=== PATIENT | male | born 1985 | race Caucasian/White ===

== ENCOUNTER 2017-01-17 20:47 | Emergency (ER) | payer MEDICAID ==
[~2017-01-17] VITALS: Ht 172.7 cm; Wt 81.4 kg
[~2017-01-17 20:47] MED LIST: GABA300C10 PO
[2017-01-17 21:31] VITALS: BP 139/102
== END 2017-01-17 21:50 | disposition home or self-care (01) ==
LOC: ED 21:43
DX: Z02.9 Encounter for administrative examinations, unspecified (principal); I10 Essential (primary) hypertension; R56.9 Unspecified convulsions; Z88.1 Allergy status to other antibiotic agents
CPT/HCPCS: 99283

== ENCOUNTER 2017-04-09 19:42 | Emergency (ER) | payer MEDICAID ==
[~2017-04-09] VITALS: Ht 167.6 cm; Wt 75.3 kg
[2017-04-09 19:43] VITALS: BP 163/96
== END 2017-04-09 20:35 | disposition left against medical advice (07) ==
LOC: ED 20:15
DX: H92.01 Otalgia, right ear (principal); Z53.21 Procedure and treatment not carried out due to patient leaving prior to being seen by health care provider

== ENCOUNTER 2017-04-09 23:18 | Emergency (ER) | payer MEDICAID ==
[~2017-04-09] VITALS: Ht 170.2 cm; Wt 74.4 kg
[2017-04-09 23:22] VITALS: BP 135/84
== END 2017-04-10 00:08 | disposition left against medical advice (07) ==
LOC: ED 23:47
DX: T16.1XXA Foreign body in right ear, initial encounter (principal); X58.XXXA Exposure to other specified factors, initial encounter; Y93.89 Activity, other specified; Y92.89 Other specified places as the place of occurrence of the external cause; Y99.8 Other external cause status; H92.01 Otalgia, right ear; S00.451A Superficial foreign body of right ear, initial encounter
CPT/HCPCS: 69200